=== PATIENT | male | born 1990 | race Two or more races ===

== ENCOUNTER 2024-11-22 13:11 | Emergency (ER) | payer MEDICAID, OTHER ==
[~2024-11-22] VITALS: Ht 157.5 cm; Wt 94.5 kg
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
[2024-11-22] MEDS ORDERED: IBU600T PO (15:41)
[2024-11-22] MEDS ORDERED: HYDR-4902 PO (15:41)
[2024-11-22] MEDS: ACETAMINOPHEN 500 MG TAB or CAP PO ONE (15:43)
[2024-11-22 15:53] VITALS: BP 154/92; PULSE 95; RESP 16; TEMP 98.7; O2SAT 97
== END 2024-11-22 15:56 | disposition home or self-care (01) ==
LOC: ER 13:17
DX: S86.912A Strain of unspecified muscle(s) and tendon(s) at lower leg level, left leg, initial encounter (principal); S39.012A Strain of muscle, fascia and tendon of lower back, initial encounter; S40.022A Contusion of left upper arm, initial encounter; V43.52XA Car driver injured in collision with other type car in traffic accident, initial encounter; Y93.89 Activity, other specified; Y92.410 Unspecified street and highway as the place of occurrence of the external cause; Y99.8 Other external cause status
CPT/HCPCS: 72100; 73060; 73562